=== PATIENT | male | born 1940 | race Native Hawaiian/Other Pacific Islander ===

== ENCOUNTER 2023-09-17 20:13 | Inpatient (IN) | payer OTHER ==
[~2023-09-17] VITALS: Ht 172.7 cm; Wt 72.7 kg
[2023-09-17] MEDS ORDERED: Albuterol/Ipratropium 3 MG-0.5 MG/3 ML Neb Soln IH ONE (21:30)
[2023-09-17] MEDS ORDERED: NS 500 ML IV ONE (21:30)
[2023-09-17 22:04] LABS: ALBUMIN 3.2 gm/dL (3.4-4.8); BILIRUBIN,TOTAL 1.1 mg/dL (0.2-1.2); CALCIUM 10.1 mg/dL (8.4-10.2); CREATININE, serum 1.79 mg/dL (0.72-1.25); MAGNESIUM 2.1 mg/dL (1.6-2.6); POTASSIUM 4.4 mmol/L (3.5-4.5); TOTAL PROTEIN 7.7 gm/dL (6.2-8.1)
[2023-09-17 22:10] LABS: TROPONIN-I 0.025 ng/mL (0.00-0.033)
[2023-09-17 22:17] LABS: ARTERIAL BLD GAS O2 SATURATION 96.5 % (92-100); ARTERIAL BLD GAS TCO2 CT 17.6; ARTERIAL BLOOD GAS BASE EXCESS -5.2 (-2-2); ARTERIAL BLOOD GAS HCO3 16.9 meq/L (22-26); ARTERIAL BLOOD GAS PCO2 24.8 mmHg (35-45); ARTERIAL BLOOD GAS pH 7.45 (7.35-7.45)
[2023-09-17] MEDS ORDERED: NS 1,000 ML IV ONE (22:30)
[2023-09-17 22:40] LABS: BASO % 0.1 % (0.0-2.0); EOS % 0.1 % (0.0-4.0); GRAN # 6.7 K/mm3 (1.4-6.5); GRAN % 78.5 % (42.2-75.2); HEMATOCRIT 43.6 % (42.0-52.0); HEMOGLOBIN 14.9 g/dl (13.5-18.0); LYMPH # 0.8 K/mm3 (1.2-3.4); LYMPH % 9.4 % (20.0-51.0); MEAN CELL VOLUME 93 fl (80.0-100.0); MEAN CORPUSCULAR HEMOGLOBIN 32 pg (27-31); MEAN CORPUSCULAR HGB CONC 34 g/dl (33.0-37.0); MEAN PLATELET VOLUME 9.7 fl (7.4-10.4); MONO % 11.4 % (1.7-9.3); PLATELET COUNT 326 K/mm3 (130-400); RED BLOOD COUNT 4.68 M/mm3 (4.20-5.60); REDCELL DISTRIBUTION WIDTH-CV 12.4 % (11.5-14.5)
[2023-09-18] VITALS (9 sets, daily range): BP systolic 132–172; BP diastolic 56–68; PULSE 67–120; TEMP 98–99.4
[2023-09-18] MEDS ORDERED: Apixaban 5 MG TAB PO ONE (00:45)
[2023-09-18] MEDS ORDERED: ZOCOR 80MG80 MG PO (01:16)
[2023-09-18] MEDS ORDERED: FLOMAX 0.40.4 MG/CAP PO (01:16)
[2023-09-18] MEDS ORDERED: DIABETA 5MG5 MG/TAB PO (01:16)
[2023-09-18] MEDS ORDERED: NEURONTIN100 MG/CAP PO (01:16)
[2023-09-18] MEDS ORDERED: PRINIVIL40 MG PO (01:17)
[2023-09-18] MEDS ORDERED: NESINA25 PO (01:17)
[2023-09-18] MEDS ORDERED: TIROSINT100 MC1 PO (01:18)
[2023-09-18] MEDS ORDERED: ASPIRIN 81M81 MG/TA2 PO (01:18)
[2023-09-18] MEDS ORDERED: NS 1,000 ML IV ONE (01:30)
[2023-09-18] MEDS ORDERED: NS 1,000 ML IV SCH (02:00)
[2023-09-18] MEDS ORDERED: Acetaminophen 500 MG TAB PO PRN (02:00)
[2023-09-18] MEDS ORDERED: Polyethylene Glycol 3350 17 GM PDS PO PRN (02:00)
[2023-09-18] MEDS ORDERED: Ondansetron 4 MG/2 ML VIAL IV PRN (02:00)
[2023-09-18] MEDS ORDERED: dexAMETHasone 10 MG/ML VIAL IV SCH (02:15)
[2023-09-18] MEDS ORDERED: hydrALAZINE 20 MG/ML 1 ML VIAL IV PRN (02:30)
[2023-09-18] MEDS ORDERED: Dextrose 50% Water 25 GM/50 ML SYRINGE IV PRN (02:45)
[2023-09-18] MEDS ORDERED: NS 500 ML IV ONE (02:45)
[2023-09-18] MEDS ORDERED: Dextrose (Glucose) 15 GM (4 x 3.75 GM) Chewable TABLET PACK PO PRN (02:45)
[2023-09-18] MEDS ORDERED: Glucagon 1 MG VIAL IM PRN (02:45)
--- NOTE | 2023-09-18 05:15 | NUR ---
PT ARRIVED TO THE MEDICAL FLOOR AROUND 0200HRS TO ROOM 303. PT A&O X 4, BUT UNABLE TO ANSWER MANY QUESTIONS; VS MOSTLY STABLE WITH ELEVATED B/P. PT GIVEN APRESOLINE FOR ELEVATED BLOOD PRESSURE. THE APRESOLINE WAS EFFECTIVE IN LOWERING PT'S B/P; O2 VIA 3L NC. PT DENIED GENERAL PAIN, CHEST PAIN, PALPITATIONS, SOB, N,V,D OR DIZZINESS AT THIS TIME. ADMISSIONS ASSESSMENT COMPLETE. UNABLE TO COMPLETE MED REC DUE TO PT'S INABILITY TO TELL ME WHAT HE TAKES AND THE LAST TIME HE TOOK IT. HE WAS ABLE TO TELL ME, [facility]. PT ORIENTED TO ROOM AND HOSPITAL POLICY. ALL QUESTIONS AND CONCERNS ADDRESSED. PT EXPRESSED NO ADDITIONAL NEEDS AT THIS TIME. BED ALARM ON. CALL LIGHT WITHIN REACH.
[2023-09-18] MEDS ORDERED: Albuterol/Ipratropium 3 MG-0.5 MG/3 ML Neb Soln IH SCH (08:00)
[2023-09-18] MEDS ORDERED: Insulin Lispro (HumaLOG) SQ SCH (08:00)
--- NOTE | 2023-09-18 08:30 | NUR ---
Patient is resting in bed, states he feels better, alert and oriented x3, denies any pain or discomfort. Getting fluids NS 100mls/hr, 1L O2NC Tele in place NSR. Assessment completed, no further needs at this time. Call light within reach.
[2023-09-18] MEDS ORDERED: Gabapentin 100 MG CAP PO SCH (09:00)
[2023-09-18] MEDS ORDERED: Apixaban 5 MG TAB PO SCH (09:00)
[2023-09-18] MEDS ORDERED: Umeclidinium/Vilanterol 62.5-25 MCG INHALATION/INHALER IH SCH (09:00)
--- NOTE | 2023-09-18 15:17 | NUR ---
distillery worker general called pt's room due to being in isolation, pt did not answer the room phone. SAMIA called pt's son, Jaxon [phone] to discuss discharge planning. Jaxon reports pt lives alone in [place]. He states pt sees a PCP at [facility]. [facility] He was previously independent with ADLS and uses no DME, but has a cane. Pt does not have a DPOA-HC and son advises he is now working on this. SW states they are able to complete one in the hospital, as long as he is alert and oriented. Son verbalized understanding and reports his brother, Hermann Sheth is coming into town [facility]. Pt has three children total and was informed at this time, they are all equal DPOA-HC. SAMIA discussed the PT reccomendations for SNF vs 24/7 care. Son stated he agrees pt is not safe to return home and agrees with SNF, then potentially LTC. He expressed hesistation with knowing the [facility] takes [facility] and needs auth.. Son said he wants to and will discuss with his brother. SAMIA provided the need to start discharge planning early on and obtaining authorization with the [facility]. SAMIA provided SAMIA Bob's number for follow-up tomorrow. Discharge Plan: SNF vs home with son
--- NOTE | 2023-09-18 18:46 | NUR ---
Patient has had a calm shift, continues with 1 L O2 NC. Family was with him in the afternoon. Continues getting fluids per orders. Report will be given to night RN.
[2023-09-18] MEDS ORDERED: [UNRECOGNIZED DRUG - REMARK] PO SCH (21:00)
[2023-09-18] MEDS ORDERED: Atorvastatin 40 MG TAB PO SCH (21:00)
[2023-09-19] VITALS (12 sets, daily range): BP systolic 148–163; BP diastolic 61–76; PULSE 50–94; TEMP 97.6–98.6
--- NOTE | 2023-09-19 01:05 | NUR ---
NURSING SHIFT ASSESSMENT COMPLETED. THE PATIENT WAS ALERT AND ORIENTED UPON ASSESSMENT. THE PATIENT DENIED NEEDS OR DISCOMFORT. VITAL SIGNS WERE TAKEN AT THIS TIME. EVENING MEDICATIONS REVIEWED WELL THE PLAN OF CARE. QUESTIONS AND CONCERNS WERE ANSWERED. BED ALARM ON, PERSONAL BELONGINGS WITHIN REACH. CALL LIGHT WITHIN REACH. BED IN LOW POSITION. THE PATIENT DEMONSTARTED USE OF THE CALL LIGHT.
[2023-09-19 02:51] LABS: COLLECTION METHOD CLEAN CATCH
[2023-09-19 03:01] LABS: PH 5.5 (5.0-8.5); URINE APPEARANCE CLEAR (CLEAR/HAZY); URINE BLOOD NEGATIVE (NEGATIVE); URINE COLOR YELLOW (YELLOW); URINE GLUCOSE 3+ (NEGATIVE); URINE KETONE 1+ (NEGATIVE); URINE NITRATE NEGATIVE (NEGATIVE); URINE PROTEIN(semi-quant) 1+ (NEGATIVE)
[2023-09-19 07:58] LABS: CALCIUM 8.4 mg/dL (8.4-10.2); CREATININE, serum 0.97 mg/dL (0.72-1.25); POTASSIUM 3.8 mmol/L (3.5-4.5)
[2023-09-19 08:01] LABS: GRAN # 2.9 K/mm3 (1.4-6.5); GRAN % 74.2 % (42.2-75.2); LYMPH # 0.5 K/mm3 (1.2-3.4); LYMPH % 12.5 % (20.0-51.0); MEAN CELL VOLUME 93 fl (80.0-100.0); MEAN CORPUSCULAR HGB CONC 35 g/dl (33.0-37.0); MEAN PLATELET VOLUME 9.6 fl (7.4-10.4); MONO # 0.5 K/mm3 (0.1-0.6); PLATELET COUNT 294 K/mm3 (130-400); RED BLOOD COUNT 3.73 M/mm3 (4.20-5.60); REDCELL DISTRIBUTION WIDTH-CV 12.2 % (11.5-14.5)
[2023-09-19 08:02] LABS: HEMATOCRIT 34.5 % (42.0-52.0); MEAN CORPUSCULAR HEMOGLOBIN 32 pg (27-31)
[2023-09-19 08:03] LABS: HEMOGLOBIN 12.1 g/dl (13.5-18.0)
--- NOTE | 2023-09-19 09:30 | NUR ---
PT LAYING IN BED UPON ENTERING. ASSESSSMENT DONE, MEDS GIVEN. PT STATES THAT HE USUALLY TAKES [facility] AT [facility] AND MED NOT GIVEN AT THIS TIME. PT DENIES PAIN AND ON ROOM AIR AT THIS TIME. PT ORIENTED TO PERSON AND PLACE, UNABLE TO GIVEN ACCURATE YEAR AND REORIENTED. COARSE CRACKLES HEARD IN BILATERAL BASES. NS RUNNING AT 100 MLS/HR PER ORDER IN LEFT AC. PT DENIES NEEDS NEEDS. BED IN LOWEST POSITION, CALL LIGHT IN REACH, BED ALARM ON
--- NOTE | 2023-09-19 11:06 | NUR ---
FLUIDS STOPPED PER ORDER
--- NOTE | 2023-09-19 13:59 | NUR ---
LAB CALLED THIS NURSE AND STATED THAT 2 HR LACTIC CANT BE DRAWN DUE TO PT NOT HAVING INTIAL LACTIC DRAWN TODAY. HOSPITALIST NOTIFIED AND GAVE THIS NURSE A VERBAL ORDER FOR LACTIC LAB AND "IF ITS HIGH WE CAN GET A 2 HOUR LACTIC". THIS NURSE VERBLAIZE UNDERSTANDING.
--- NOTE | 2023-09-19 14:57 | NUR ---
Commercial Real Estate Associate received a phone call from patient's son, Jaxon Sanchez" following up on discharge planning. Bo is in agreement with recommendation for SNF and requested a referral be sent to [facility] as he has a family member that works there. SAMIA reviewed options for SNF, Swing Bed, and IPR. Bo advised IPR would be the second preference. SAMIA gave referrals to both including additional insurance information obtained from [employer] Counselor. Patient has Medicare PT A and BCBS FED. Chelly, IPR Director advised at this time they did not think they would accept but would follow along. Franco at [facility] advised they can accept patient on Saturday when he has his midnights. Franco requested family transport if able/appropriate. SAMIA contacted Bo to provide update and he is agreeable with plan to discharge to [facility] on Saturday. Bo also advised family can provide transportation. Discharge Plan: [facility] SNF
--- NOTE | 2023-09-19 18:25 | NUR ---
PT SET UP FOR DINNER, FAMILY AT BEDSIDE
--- NOTE | 2023-09-19 18:45 | NUR ---
REPORT GIVEN TO KODY, RN
--- NOTE | 2023-09-19 20:30 | NUR ---
UPON SHIFT ASSESSMENT, JESSI WAS UP IN BED AND AXO X2. LUNG SOUNDS WERE CLEAR BUT SLIGHTLY DIMINISHED IN LOWER LOBES. HE DENIES SOA AND VS ARE WNL, TELE IS NS. PULMONARY STATUS APPEARS GOOD. FOOD INTAKE ON DINNER TRAY WAS APPROXIMATELY 30% AND JESSI REQUESTED AND RECIEVED SUGAR-FREE JELLO. CALL LIGHT WITHIN REACH AND BED ALARM ON.
--- NOTE | 2023-09-19 23:00 | NUR ---
ROUNDED ON PATIENT-JESSI WAS IN BED AWAKE AND ASKED TO HAVE BATHROOM LIGHT TURNED OFF, DENIED TOILETING NEEDS. VS WNL. TELE NS ALIDA
[2023-09-20] VITALS (12 sets, daily range): BP systolic 136–185; BP diastolic 52–78; PULSE 44–57; TEMP 97.9–99.9
--- NOTE | 2023-09-20 01:30 | NUR ---
ROUNDED ON PATIENT-JESSI SLEEPIMG ON LEFT SIDE. VS ARE WNL. NO INCREASE WOB NOTED AND TELE IS NS BRADYCARDIC.
--- NOTE | 2023-09-20 03:53 | NUR ---
CALL RECIEVED FROM TELE. JESSI HR 45-50 BRADYCARDIC. ENTERED PATIENT'S ROOM AND HE WAS SLEEPING SOUNDLY ON HIS RT SIDE. JESSI WAS EASY TO AROUSE AND WAS AXO X3. OTHER VS ARE WNL. HE IS ASYMPTOMATIC. WILL CONTINUE VS VIGILANCE.
[2023-09-20 06:58] LABS: CALCIUM 7.9 mg/dL (8.4-10.2); CREATININE, serum 0.89 mg/dL (0.72-1.25); POTASSIUM 3.4 mmol/L (3.5-4.5)
[2023-09-20 07:20] LABS: GRAN # 3.1 K/mm3 (1.4-6.5); HEMOGLOBIN 10.9 g/dl (13.5-18.0); LYMPH # 0.7 K/mm3 (1.2-3.4); LYMPH % 15.8 % (20.0-51.0); MEAN CELL VOLUME 91 fl (80.0-100.0); MEAN CORPUSCULAR HEMOGLOBIN 32 pg (27-31); MEAN CORPUSCULAR HGB CONC 36 g/dl (33.0-37.0); MEAN PLATELET VOLUME 9.7 fl (7.4-10.4); MONO # 0.5 K/mm3 (0.1-0.6); MONO % 10.7 % (1.7-9.3); PLATELET COUNT 316 K/mm3 (130-400); RED BLOOD COUNT 3.37 M/mm3 (4.20-5.60); REDCELL DISTRIBUTION WIDTH-CV 12.1 % (11.5-14.5)
[2023-09-20 07:21] LABS: HEMATOCRIT 30.6 % (42.0-52.0)
--- NOTE | 2023-09-20 07:24 | NUR ---
Patient's EKG done on 09/16 exhibits AFIB and BBB . [facility] as there is no consult for cardiology.
--- NOTE | 2023-09-20 15:30 | NUR ---
Food Taster faxed clinical updates to Franco at [facility]. SW also spoke with patient's son, Bo and confirmed he would be agreeable to transport patient tomorrow morning. Discharge Plan; [facility] tomorrow
--- NOTE | 2023-09-20 17:12 | NUR ---
Patient resting in bed, ambulates x1 assist with cane to urinate. Urine is pale yellow/clear. Denies pain or discomfort. PCT notified this nurse that accucheck around 1600 was 473 on right hand. Blood sugar re-checked on left hand and noted to be 341. 8 units of insulin administered per orders. PRN Tylenol administered due to temperature of 99.9. Patient states he feels fine, denies feeling febrile. Call light within reach, bed alarm on. All needs met at this time.
--- NOTE | 2023-09-20 18:25 | NUR ---
mold technician called this nurse to notify that patient's HR sustaining in 40s. Patient noted to be sleeping. call center operator shift engineer hospitalist updated, states to monitor at this time and notify if HR decreases below 30.
--- NOTE | 2023-09-20 19:20 | NUR ---
Bedside report received from ANTONIA Bell. Pt is currently resting in bed with no complaints. Call light within reach and fall precautions in place.
--- NOTE | 2023-09-20 21:06 | NUR ---
Shift assessment completed. VSS. Pt ambulated to bathroom with this nurse with no complications using cane. INT to Lt forearm patent with no swelling, redness, or drainage. Pt reports no pain at this time. Telemetry in place with replacement of one telemetry pad. Pt has no complaints at this time. Contact/droplet precautions in place. Call light within reach.
--- NOTE | 2023-09-20 21:20 | NUR ---
PADMAJA Escobar notified of blood pressure of
[2023-09-20] MEDS ORDERED: hydrALAZINE 20 MG/ML 1 ML VIAL IV ONE (21:30)
[2023-09-20] MEDS ORDERED: Lisinopril 20 MG TAB PO ONE (23:15)
--- NOTE | 2023-09-20 23:45 | NUR ---
DYNAMICS AX DEVELOPER Luz notified of BP of185/72. DYNAMICS AX DEVELOPER instructed this nurse to administer additional dose of Hydralazine 20 mg IV once and Lisinopril 40 mg PO once. This nurse asked charge nurse Mary to administer hydralazine as ordered. Before administration BP rechecked and BP 136/52. Charge nurse Mary notified Luz DYNAMICS AX DEVELOPER and was instructed to not give Hydralazine but to proceed with Lisniopril 40 mg PO once. This nurse administered Lisniopril as ordered.
[2023-09-21 00:12] VITALS: BP_SYST 136
[2023-09-21 03:50] VITALS: BP 127/45; PULSE 58; TEMP 101.4
[2023-09-21] MEDS ORDERED: Ibuprofen 400 MG TAB PO ONE (04:00)
--- NOTE | 2023-09-21 04:06 | NUR ---
PADMAJA Escobar notified of pt temperature 101.4.
[2023-09-21 04:09] VITALS: BP_SYST 127
[2023-09-21 06:50] LABS: CREATININE, serum 0.96 mg/dL (0.72-1.25); MAGNESIUM 1.7 mg/dL (1.6-2.6); POTASSIUM 4.1 mmol/L (3.5-4.5)
[2023-09-21 07:05] VITALS: BP 147/62; PULSE 68; TEMP 97.8
[2023-09-21 07:12] LABS: TSH w REFLEX 1.109 uIU/mL (0.350-4.940)
[2023-09-21 07:36] LABS: EOS % 0.2 % (0.0-4.0); GRAN # 4.7 K/mm3 (1.4-6.5); GRAN % 74.7 % (42.2-75.2); HEMOGLOBIN 11.3 g/dl (13.5-18.0); LYMPH # 0.9 K/mm3 (1.2-3.4); LYMPH % 14.1 % (20.0-51.0); MEAN CELL VOLUME 92 fl (80.0-100.0); MEAN CORPUSCULAR HEMOGLOBIN 32 pg (27-31); MEAN CORPUSCULAR HGB CONC 35 g/dl (33.0-37.0); MONO # 0.7 K/mm3 (0.1-0.6); MONO % 10.7 % (1.7-9.3); PLATELET COUNT 347 K/mm3 (130-400); RED BLOOD COUNT 3.55 M/mm3 (4.20-5.60); REDCELL DISTRIBUTION WIDTH-CV 12.1 % (11.5-14.5)
[2023-09-21 07:37] LABS: HEMATOCRIT 32.8 % (42.0-52.0)
--- NOTE | 2023-09-21 08:40 | NUR ---
patient laying in bed resting. patient denies any pain at this time. on room air. shift assessment completed. bed alarm on. call light within reach.
[2023-09-21] MEDS ORDERED: dexAMETHasone 4 MG TAB PO SCH (09:00)
[2023-09-21] MEDS ORDERED: Lisinopril 20 MG TAB PO SCH (09:00)
[2023-09-21] MEDS ORDERED: TYLENOL 500MG500 MG PO (09:32)
[2023-09-21] MEDS ORDERED: RT Anoro Ellipta IH (09:33)
[2023-09-21] MEDS ORDERED: ELIQUIS 5MG PO (09:35)
[2023-09-21 09:39] VITALS: BP_SYST 147
[2023-09-21] MEDS ORDERED: IPRATROPIUM BROM3 M1 IH (09:39)
[2023-09-21] MEDS ORDERED: PROTONIX 40MG T40 MG PO (09:40)
[2023-09-21] MEDS ORDERED: DECADRON6 MG PO (09:40)
[2023-09-21] MEDS ORDERED: RITE AID GLUCOSE4 G1 PO (09:42)
[2023-09-21] MEDS ORDERED: ZOFRAN ODT4 MG PO (09:42)
[2023-09-21] MEDS ORDERED: LEADER CLE17 GM/Dose PO (09:42)
[2023-09-21] MEDS ORDERED: HUMALOG KW200 UNIT/1 SQ (09:43)
--- NOTE | 2023-09-21 11:36 | NUR ---
Radio Despatcher faxed discharge orders to Franco at [facility]. SAMIA also coordinated with patient's son, Jaxon who will lease picker patient at noon to take him to [facility]. SAMIA notified Franco and RN at [facility] of transport time. Discharge Plan: [facility]
--- NOTE | 2023-09-21 12:40 | NUR ---
patient report called to shahid marlow nurse. patient son and daughter came to pick him up and transfer patient to facility. tele and iv removed.
--- NOTE | 2023-09-21 12:49 | NUR ---
patient instructions given. patient and family verbalized understanding. patient requested son to sing discharge papers. paperwork was given to family to bring to [facility].
== END 2023-09-21 12:40 | DRG 177 ==
LOC: COL.ER 20:13 → MEDICAL 09-18 00:38
PROVIDERS: Internal Medicine; ADMIT Internal Medicine
DX: U07.1 COVID-19 (principal); I26.99 Other pulmonary embolism without acute cor pulmonale; J12.82 Pneumonia due to coronavirus disease 2019; J96.01 Acute respiratory failure with hypoxia; N17.9 Acute kidney failure, unspecified; E86.0 Dehydration; R54 Age-related physical debility; I10 Essential (primary) hypertension; E11.9 Type 2 diabetes mellitus without complications; E03.9 Hypothyroidism, unspecified; E78.5 Hyperlipidemia, unspecified; R74.02 Elevation of levels of lactic acid dehydrogenase [LDH]; Z23 Encounter for immunization
CPT/HCPCS: J0360; J1100; J1815; J7030; J7040; J8540